=== PATIENT | female | born 1995 | race Caucasian/White ===

== ENCOUNTER 2020-12-08 09:01 | Emergency (ER) | payer BC, SELFPAY ==
[2020-12-08] MEDS ORDERED: Dexamethasone 10 MG/ML VIAL ONE (11:11)
== END 2020-12-08 11:27 | disposition home or self-care (01) ==
LOC: CSHERS 09:01
DX: J02.9 Acute pharyngitis, unspecified (principal); L25.9 Unspecified contact dermatitis, unspecified cause
CPT/HCPCS: 87081; 87430; 99283; J1100